=== PATIENT | female | born 1965 | race Caucasian/White ===

== ENCOUNTER → 2016-05-18 | Outpatient (CLI) | payer OTHER ==
--- NOTE | 2016-05-18 09:28 | WOMENS IMAGING REPORT ---
EXAM DESCRIPTION: BILAT DIAGNOSTIC MAMMO W/CAD; U/S BREAST UNILAT LIMITED COMPLETED DATE/TIME: 05/18/2016 8:18 am; 05/18/2016 8:56 am REASON FOR STUDY: N63 LUMP; LUMP;N63 N63 UNSPECIFIED LUMP IN BREAST COMPARISON: Multiple since 2008 TECHNIQUE: Standard craniocaudal and mediolateral oblique views of each breast recorded using digita l acquisition. Additional "push-back" craniocaudal and mediolateral oblique images acquired. Additional left breast cone compression far upper outer quadrant in the area of palpable abnormality, in the CC and MLO orientations. Left breast ultrasound was also performed in the area palpable abnormality far upper outer quadrant. LIMITATIONS: None. FINDINGS: IMPLANTS: Bilateral subpectoral implants. RIGHT BREAST MASSES: No suspicious masses. CALCIFICATIONS: No new or suspicious calcifications. ARCHITECTURAL DISTORTION: None. DEVELOPING DENSITY: None. ASYMMETRY: None noted. OTHER: No other significant findings. LEFT BREAST MASSES: No suspicious masses. CALCIFICATIONS: No new or suspicious calcifications. ARCHITECTURAL DISTORTION: None. DEVELOPING DENSITY: None. ASYMMETRY: None noted. OTHER: No other significant finding. Read with the assistance of CAD: .[facility] - R2 Cenova Version 1.3 .[facility] - R2 Cenova Version 1.3 .[facility] - R2 Cenova Version 2.4 .[facility] - R2 Cenova Version 2.4 .[facility] - R2 Ediphone Operator Version 9.2 Left breast ultrasound was performed. Upper outer quadrant was examined. In the area of palpable ab normality, no focal findings are identified. There is incidental finding of a benign the left axilla ry tail lymph node 12 by by 7 mm size. Tiny complex cyst versus fibroadenoma 7 mm in diameter at the 12 o'clock position left breast about 3 to 4 cm from the nipple. This is stable compared to multipl e previous breast ultrasound exams. BREAST DENSITY: c. The breasts are heterogeneously dense, which may obscure small masses. BIRAD: 2 Benign findings. RECOMMENDATION: RECOMMENDED FOLLOW UP: Clinical followup for palpable abnormality. Otherwise, pleas e continue bilateral screening mammography April 2017. Consider screening tomosynthesis given hete rogeneously dense tissue. SPECIFIC INTERVENTION/IMAGING/CONSULTATION RECOMMENDED:No additional intervention/ imaging/consultati on needed at this time. COMMUNICATION:Patient notified by letter COMMENT: PATIENT NOTIFIED BY LETTER. The [employer] (ACR) has developed recommendations for screening MRI of the breast s in certain patient populations, to be used in conjunction with mammography. Breast MRI surveillanc e may be appropriate for women with more than 20% lifetime risk of developing breast cancer as deter mined by genetic testing, significant family history of the disease, or history of mantle radiation f or Hodgkins Disease. ACR Practice Guidelines 2008. TECHNICAL DOCUMENTATION: FINDING NUMBER: (1) ASSESSMENT: (1) JOB ID: [id number] [employer]- All Rights Reserved
--- NOTE | 2016-05-18 09:28 | WOMENS IMAGING REPORT ---
EXAM DESCRIPTION: BILAT DIAGNOSTIC MAMMO W/CAD; U/S BREAST UNILAT LIMITED COMPLETED DATE/TIME: 05/18/2016 8:18 am; 05/18/2016 8:56 am REASON FOR STUDY: N63 LUMP; LUMP;N63 N63 UNSPECIFIED LUMP IN BREAST COMPARISON: Multiple since 2008 TECHNIQUE: Standard craniocaudal and mediolateral oblique views of each breast recorded using digita l acquisition. Additional "push-back" craniocaudal and mediolateral oblique images acquired. Additional left breast cone compression far upper outer quadrant in the area of palpable abnormality, in the CC and MLO orientations. Left breast ultrasound was also performed in the area palpable abnormality far upper outer quadrant. LIMITATIONS: None. FINDINGS: IMPLANTS: Bilateral subpectoral implants. RIGHT BREAST MASSES: No suspicious masses. CALCIFICATIONS: No new or suspicious calcifications. ARCHITECTURAL DISTORTION: None. DEVELOPING DENSITY: None. ASYMMETRY: None noted. OTHER: No other significant findings. LEFT BREAST MASSES: No suspicious masses. CALCIFICATIONS: No new or suspicious calcifications. ARCHITECTURAL DISTORTION: None. DEVELOPING DENSITY: None. ASYMMETRY: None noted. OTHER: No other significant finding. Read with the assistance of CAD: .[facility] - R2 Cenova Version 1.3 .[facility] Imaging - R2 Cenova Version 1.3 .[facility] Imaging - R2 Cenova Version 2.4 .[facility] [place] - R2 Cenova Version 2.4 .[facility] - R2 Abrasive Band Winder Version 9.2 Left breast ultrasound was performed. Upper outer quadrant was examined. In the area of palpable ab normality, no focal findings are identified. There is incidental finding of a benign the left axilla ry tail lymph node 12 by by 7 mm size. Tiny complex cyst versus fibroadenoma 7 mm in diameter at the 12 o'clock position left breast about 3 to 4 cm from the nipple. This is stable compared to multipl e previous breast ultrasound exams. BREAST DENSITY: c. The breasts are heterogeneously dense, which may obscure small masses. BIRAD: 2 Benign findings. RECOMMENDATION: RECOMMENDED FOLLOW UP: Clinical followup for palpable abnormality. Otherwise, pleas e continue bilateral screening mammography April 2017. Consider screening tomosynthesis given hete rogeneously dense tissue. SPECIFIC INTERVENTION/IMAGING/CONSULTATION RECOMMENDED:No additional intervention/ imaging/consultati on needed at this time. COMMUNICATION:Patient notified by letter COMMENT: PATIENT NOTIFIED BY LETTER. The [employer] (ACR) has developed recommendations for screening MRI of the breast s in certain patient populations, to be used in conjunction with mammography. Breast MRI surveillanc e may be appropriate for women with more than 20% lifetime risk of developing breast cancer as deter mined by genetic testing, significant family history of the disease, or history of mantle radiation f or Hodgkins Disease. ACR Practice Guidelines 2008. TECHNICAL DOCUMENTATION: FINDING NUMBER: (1) ASSESSMENT: (1) JOB ID: [id number] [facility]- All Rights Reserved
== END ==
LOC: WI 07:38
PROVIDERS: ATTEND Internal Medicine
DX: N63 Unspecified lump in breast (principal)
CPT/HCPCS: 76642; G0204; 77066

== ENCOUNTER 2017-10-24 15:31 | Emergency (ER) | payer OTHER ==
--- NOTE | 2017-10-24 16:02 | ER Document Report ---
ED Medical Screen (RME) - General Chief Complaint: Headache Stated Complaint: NECK PAIN/HEADACHE Time Seen by Provider: 10/24/17 15:48 Mode of Arrival: Wheelchair Information source: Patient Notes: 52 yr oldfemale hx of chronic neck pain with cervical stenosis and rsuprapinatus tear presents with complaints of continued pain. pt denies any fevers or chills . notes to generalized weakness episodes Patient has been seen by multiple specialists presents with MRI results and other office visit information I have greeted and performed a rapid initial assessment of this patient. A comprehensive ED assessment and evaluation of the patient, analysis of test results and completion of the medical decision making process will be conducted by additional ED providers. PHYSICAL EXAMINATION: GENERAL: Well-appearing, well-nourished and in no acute distress. HEAD: Atraumatic, normocephalic. EYES: Pupils equal round extraocular movements intact, conjunctiva are normal. ENT: Nares patent NECK: Normal range of motion LUNGS: No respiratory distress Musculoskeletal: Normal range of motion NEUROLOGICAL: Normal speech, normal gait. PSYCH: intermittently tearful SKIN: Warm, Dry, normal turgor, no rashes or lesions noted. TRAVEL OUTSIDE OF THE [place] IN LAST 30 DAYS: No - Related Data Allergies/Adverse Reactions: Penicillins Allergy (Severe, Verified 01/15/16 08:23) erythromycin base [Erythromycin Base] Allergy (Mild, Verified 01/15/16 08:23) Hives amoxicillin Allergy (Verified 01/15/16 08:23) Swelling of Throat buspirone Allergy (Verified 01/15/16 08:23) hydroxyzine [From Vistaril] Allergy (Verified 01/15/16 08:23) lisdexamfetamine [From Vyvanse] Allergy (Verified 01/15/16 08:23) metronidazole [From Flagyl] Allergy (Verified 01/15/16 08:23) Anaphylaxis sulfamethoxazole [From Bactrim] Allergy (Verified 01/15/16 08:23) trimethoprim [From Bactrim] Allergy (Verified 01/15/16 08:23) Past Medical History - Past Medical History Cardiac Medical History: Denies: Hx Coronary Artery Disease, Hx Heart Attack, Hx Hypertension Pulmonary Medical History: Reports: Hx Asthma - albuterol Denies: Hx Bronchitis, Hx COPD, Hx Pneumonia Neurological Medical History: Reports: Hx Migraine. Denies: Hx Cerebrovascular Accident, Hx Seizures GI Medical History: Reports: Hx Diverticulitis, Hx Gastroesophageal Reflux Disease Musculoskeltal Medical History: Reports Hx Arthritis - DJD rt knee, bursitis in lt shoulder Psychiatric Medical History: Reports: Hx Anxiety, Hx Depression Past Surgical History: Reports: Hx Breast Surgery - augmentation, Hx Hysterectomy. Denies: Hx Pacemaker - Immunizations Immunizations up to date: Yes Hx Diphtheria, Pertussis, Tetanus Vaccination: Yes Physical Exam - Vital signs Vitals: Temp Pulse Resp BP Pulse Ox 98.1 F 99 14 143/92 H 99 10/24/17 15:37 10/24/17 15:37 10/24/17 15:37 10/24/17 15:37 10/24/17 15:37 Course - Vital Signs Vital signs: Temp Pulse Resp BP Pulse Ox 98.1 F 99 14 143/92 H 99 10/24/17 15:37 10/24/17 15:37 10/24/17 15:37 10/24/17 15:37 10/24/17 15:37 Doctor's Discharge - Discharge Referrals: RADHA SEE JR, MD [Primary Care Provider] - Follow up as needed
[2017-10-24] MEDS ORDERED: GABAPENTIN 300 MG CAPSULE PO ONE (16:03)
[2017-10-24] MEDS ORDERED: KETOROLAC TROMETHAMINE INJ/PF 30 MG/1 ML SDV IV ONE (18:39)
[2017-10-24] MEDS ORDERED: NORMAL SALINE 1000 ML 1,000 ML IV ONE (18:39)
[2017-10-24] MEDS ORDERED: PROCHLORPERAZINE EDISYLATE INJ 10 MG/2 ML VIAL IV ONE (18:40)
[2017-10-24] MEDS ORDERED: DEXAMETHASONE SOD PHOS INJ 10 MG/1 ML VIAL IV ONE (18:40)
--- NOTE | 2017-10-24 18:45 | ER Document Report ---
ED General <PRASHANTH ARCE - Last Filed: 10/24/17 22:34> - General Mode of Arrival: Wheelchair Information source: Patient TRAVEL OUTSIDE OF THE [place] IN LAST 30 DAYS: No <JACK BAEZ - Last Filed: 10/31/17 13:57> - General Chief Complaint: Headache Stated Complaint: NECK PAIN/HEADACHE Time Seen by Provider: 10/24/17 15:48 Notes: Patient is a 52 year old female with migraines, chronic neck pain with cervical stenosis and supraspinatus tear presents to the emergency department complaining of multiple symptoms including continued neck pain, migraines and hip pain. Patient states she has an appointment with her neurologist in [place] on November 09, 2017 although her pain has continued to worsen further stating she needs something to hold her over in regards to her pain. She states with her pain she has gained bilateral leg weakness and thigh pain and tingling. She denies any recent falls, fevers, chills, incontinence or dysuria. Patient also expresses concern for a lump on her lower lumbar area. (JACK BAEZ) - Related Data Allergies/Adverse Reactions: Penicillins Allergy (Severe, Verified 01/15/16 08:23) erythromycin base [Erythromycin Base] Allergy (Mild, Verified 01/15/16 08:23) Hives amoxicillin Allergy (Verified 01/15/16 08:23) Swelling of Throat buspirone Allergy (Verified 01/15/16 08:23) hydroxyzine [From Vistaril] Allergy (Verified 01/15/16 08:23) lisdexamfetamine [From Vyvanse] Allergy (Verified 01/15/16 08:23) metronidazole [From Flagyl] Allergy (Verified 01/15/16 08:23) Anaphylaxis sulfamethoxazole [From Bactrim] Allergy (Verified 01/15/16 08:23) trimethoprim [From Bactrim] Allergy (Verified 01/15/16 08:23) Past Medical History - General Information source: Patient - Social History Smoking Status: Former Smoker Chew tobacco use (# tins/day): No Frequency of alcohol use: None Drug Abuse: None Family History: Reviewed & Not Pertinent Patient has suicidal ideation: No Patient has homicidal ideation: No Pulmonary Medical History: Reports: Hx Asthma - albuterol Neurological Medical History: Reports: Hx Migraine GI Medical History: Reports: Hx Diverticulitis, Hx Gastroesophageal Reflux Disease Musculoskeltal Medical History: Reports Hx Arthritis - DJD rt knee, bursitis in lt shoulder Psychiatric Medical History: Reports: Hx Anxiety, Hx Depression Past Surgical History: Reports: Hx Breast Surgery - augmentation, Hx Cholecystectomy, Hx Hysterectomy - Immunizations Immunizations up to date: Yes Hx Diphtheria, Pertussis, Tetanus Vaccination: Yes Hx Pneumococcal Vaccination: 01/22/15 <NESTORJACK - Last Filed: 10/31/17 13:57> Review of Systems - Review of Systems Constitutional: No symptoms reported EENT: No symptoms reported Cardiovascular: No symptoms reported Respiratory: No symptoms reported Gastrointestinal: No symptoms reported Genitourinary: No symptoms reported Female Genitourinary: No symptoms reported Musculoskeletal: See HPI, Muscle pain, Neck pain Skin: No symptoms reported Hematologic/Lymphatic: No symptoms reported Neurological/Psychological: See HPI, Headaches -: Yes All other systems reviewed and negative <NESTORJOSE AKEN - Last Filed: 10/31/17 13:57> Physical Exam <PRASHANTH ARCE - Last Filed: 10/24/17 22:34> <NESTOR,JOSE AKEN - Last Filed: 10/31/17 13:57> - Vital signs Vitals: Temp Pulse Resp BP Pulse Ox 98.1 F 99 14 143/92 H 99 10/24/17 15:37 10/24/17 15:37 10/24/17 15:37 10/24/17 15:37 10/24/17 15:37 - Notes Notes: GENERAL: Alert, interacts well. No acute distress. HEAD: Normocephalic, atraumatic. EYES: Pupils equal, round, and reactive to light. Extraocular movements intact. ENT: Oral mucosa moist, tongue midline. NECK: Full range of motion. Supple. Trachea midline. LUNGS: Clear to auscultation bilaterally, no wheezes, rales, or rhonchi. No respiratory distress. HEART: Regular rate and rhythm. No murmurs, gallops, or rubs. EXTREMITIES: Moves all 4 extremities spontaneously. Able to stand without difficulty. No edema, radial and dorsalis pedis pulses 2/4 bilaterally. No cyanosis. NEUROLOGICAL: Alert and oriented x3. Normal speech. PSYCH: Normal affect, normal mood. SKIN: Warm, dry, normal turgor. No rashes or lesions noted. BACK: Right paraspinal lower lumbar region contains a movable mass consistent with a lipoma. Cervical , thoracic, and lumbar area not tender to palpation. No step off or deformities. (JACK BAEZ) Course - Laboratory Result Diagrams: 10/24/17 18:50 <PRASHANTH ARCE - Last Filed: 10/24/17 22:34> - Laboratory Result Diagrams: 10/24/17 18:50 <JACK BAEZ - Last Filed: 10/31/17 13:57> - Re-evaluation Re-evalutation: 10/24/17 21:36 Upon reevaluation patient states that she no longer has a headache. 10/24/17 22:22 CT shows no acute abnormalities. Discussed findings with patient. Her mass is movable and soft consistent with a lipoma. She is to follow-up with a family with surgical referral for possible extraction . (PRASHANTH ARCE) - Vital Signs Vital signs: Temp Pulse Resp BP Pulse Ox 97.7 F 78 17 98/55 L 94 10/24/17 23:17 10/24/17 23:17 10/24/17 23:17 10/24/17 23:17 10/24/17 23:17 - Laboratory Laboratory results interpreted by me: 10/24/17 10/24/17 18:50 18:50 Sodium 146.6 H Ur Leukocyte Esterase TRACE H Discharge <PRASHANTH ARCE - Last Filed: 10/24/17 22:34> <JACK BAEZ - Last Filed: 10/31/17 13:57> - Discharge Clinical Impression: Migraine Qualifiers: Migraine type: unspecified Status migrainosus presence: without status migrainosus Intractability: not intractable Qualified Code(s): G43.909 - Migraine, unspecified, not intractable, without status migrainosus Condition: Good Disposition: HOME, SELF-CARE Instructions: Headache ([facility]) Additional Instructions: Follow-up with your family doctor regarding the mass that appears to be a lipoma in her lower back. Prescriptions: Gabapentin 300 mg PO TID #30 capsule Prochlorperazine Maleate [Compazine 10 mg Tablet] 10 mg PO ASDIR PRN #20 tablet PRN Reason: Referrals: RADHA SEE JR, MD [Primary Care Provider] - Follow up as needed Scribe Documentation - Scribe Written by Leonardibe:: Ricci Boyd, 10/24/2017 18:49 acting as scribe for :: Long <JACK BAEZ - Last Filed: 10/31/17 13:57>
[2017-10-24] MEDS ORDERED: DIPHENHYDRAMINE HCL 50 MG/ML VIAL IV ONE (18:46)
[2017-10-24 20:15] LABS: APPEARANCE,URINE CLEAR; BILIRUBIN,URINE NEGATIVE (NEGATIVE); COLOR,URINE STRAW; GLUCOSE, URINE NEGATIVE (NEGATIVE); KETONES,URINE NEGATIVE (NEGATIVE); LEUKOCYTE ESTERASE,URINE TRACE (NEGATIVE); NITRITE,URINE NEGATIVE (NEGATIVE); PROTEIN,URINE NEGATIVE (NEGATIVE); URINE SPECIFIC GRAVITY 1.006; UROBILINOGEN,URINE NEGATIVE mg/dL (<2.0)
[2017-10-24 20:17] LABS: ANION GAP 14 (5-19); BLOOD UREA NITROGEN 8 mg/dL (7-20); CALCIUM 9.5 mg/dL (8.4-10.2); CARBON DIOXIDE 29 mmol/L (22-30); CHLORIDE 104 mmol/L (98-107); GLUCOSE 87 mg/dL (75-110); POTASSIUM 4.2 mmol/L (3.6-5.0); SODIUM 146.6 mmol/L (137-145)
--- NOTE | 2017-10-24 22:12 | RADIOLOGY REPORT (SQ) ---
EXAM DESCRIPTION: CT LUMBAR SPINE WITH COMPLETED DATE/TIME: 10/24/2017 9:56 pm REASON FOR STUDY: cyst type mass R paraspinal L spine, lumbar pain COMPARISON: None. TECHNIQUE: Axial images acquired through the lumbar spine without intravenous contrast. Images revi ewed with lung, soft tissue and bone windows. Reconstructed coronal and sagittal MPR images reviewed . All images stored on PACS. All CT scanners at this facility use dose modulation, iterative reconstruction, and/or weight based d osing when appropriate to reduce radiation dose to as low as reasonably achievable (ALARA). [facility]: Dose Right [facility]: CareDose [facility]: Dose Right [facility]: Teradose 4D [facility]: [employer] RADIATION DOSE: mGy. LIMITATIONS: None. FINDINGS: SEGMENTATION: Normal. No transitional anatomy. ALIGNMENT: Normal. VERTEBRAL BODIES: No fractures. No dislocation. No acute findings. DISCS: No significant protrusions. Study limited by lack of intrathecal contrast. PEDICLES, TRANSVERSE PROCESSES: No fractures. No dislocation. No acute findings. FACETS, POSTERIOR ELEMENTS: No fractures. No dislocation. No spinal stenosis. HARDWARE: None in the spine. VISUALIZED RIBS: No fractures. SOFT TISSUES: No significant or acute finding in adjacent soft tissues. OTHER: No other significant finding. IMPRESSION: NORMAL CT OF THE LUMBAR SPINE. TECHNICAL DOCUMENTATION: JOB ID: [id number] Quality ID # [id number]: Final reports with documentation of one or more dose reduction techniques (e.g., Au tomated exposure control, adjustment of the mA and/or kV according to patient size, use of iterative reconstruction technique) 2010 [employer]- All Rights Reserved Reading location - IP/workstation name: [email or web address]
[2017-10-25 00:56] VITALS: BP 98/55
== END 2017-10-24 23:17 | disposition home or self-care (01) ==
LOC: ER 15:31
DX: G43.909 Migraine, unspecified, not intractable, without status migrainosus (principal); M54.2 Cervicalgia; M79.1 Myalgia; Z88.0 Allergy status to penicillin; Z88.3 Allergy status to other anti-infective agents; Z90.49 Acquired absence of other specified parts of digestive tract; Z90.710 Acquired absence of both cervix and uterus
CPT/HCPCS: 99284; 96361; 96374; 96375; 36415; 80048; 81001; 72132; J1200; J1885; J0780; J7030; J1100

== ENCOUNTER → 2019-03-29 | Outpatient (CLI) | payer OTHER ==
--- NOTE | 2019-03-29 09:15 | WOMENS IMAGING REPORT ---
EXAM DESCRIPTION: U/S ABDOMEN TOTAL COMPLETED DATE/TIME: 03/29/2019 8:51 am REASON FOR STUDY: R11.0 NAUSEA R11.10 VOMITING, UNSPECIFIED R19.7 DIARRHEA, UNSPECIFIED COMPARISON: 10/03/2015 TECHNIQUE: Dynamic and static grayscale images acquired of the abdomen and recorded on PACS. Additio nal selected color Doppler and spectral images recorded. Note: Study does not meet criteria for complete doppler/duplex scan LIMITATIONS: None. FINDINGS: PANCREAS: No masses. Visualized pancreatic duct normal caliber. LIVER: No masses. Echotexture normal. LIVER VASCULATURE: Normal directional flow of the main portal vein and hepatic veins. GALLBLADDER: Surgically absent. ULTRASOUND-DETECTED CUELLAR'S SIGN: Not applicable. INTRAHEPATIC DUCTS AND COMMON DUCT: CBD and intrahepatic ducts normal caliber. No filling defects. INFERIOR VENA CAVA: Normal flow. AORTA: No aneurysm. RIGHT KIDNEY: Normal in size measuring 10.8 cm. Normal echogenicity. No solid or suspicious mass es. No hydronephrosis. No calcifications. LEFT KIDNEY: Normal in size measuring 10.9 cm Normal echogenicity. No solid or suspicious masses . No hydronephrosis. No calcifications. SPLEEN: Normal in size measuring 11.5 cm. No focal lesions. PERITONEAL AND PLEURAL SPACES: No ascites or effusions. OTHER: No other significant finding. IMPRESSION: Prior cholecystectomy. Otherwise, unremarkable abdominal ultrasound. TECHNICAL DOCUMENTATION: JOB ID: [id number] [employer]- All Rights Reserved Reading location - IP/workstation name: [email or web address]
== END ==
LOC: WI 07:35
PROVIDERS: ATTEND Internal Medicine Gastroenterology
DX: R11.2 Nausea with vomiting, unspecified (principal); R19.7 Diarrhea, unspecified
CPT/HCPCS: 76700